=== PATIENT | female | born 1990 | race Caucasian/White ===

== ENCOUNTER 2022-07-02 19:47 | Emergency (ER) | payer OTHER ==
[~2022-07-02] VITALS: Ht 167.6 cm; Wt 68.2 kg
[2022-07-02] MEDS ORDERED: POLYMYXIN B/TRIMETH OD (20:31)
[2022-07-02 21:03] VITALS: BP 94/64; PULSE 84; TEMP 98
== END 2022-07-02 21:06 | disposition home or self-care (01) ==
LOC: COL.ER 19:47
DX: O9A.213 Injury, poisoning and certain other consequences of external causes complicating pregnancy, third trimester (principal); S05.01XA Injury of conjunctiva and corneal abrasion without foreign body, right eye, initial encounter; Z3A.00 Weeks of gestation of pregnancy not specified; W50.4XXA Accidental scratch by another person, initial encounter